=== PATIENT | male | born 1950 | race Native Hawaiian/Other Pacific Islander ===

== ENCOUNTER 2016-10-01 13:22 | Outpatient (CLI) | payer BC ==
[~2016-10-01 13:22] MED LIST: ALPR0.5T24 PO; ASA LOW DOSE81 MG PO; LISI10TA11 PO; METO50TA63 PO; SIMV20TA2 PO
== END 2016-10-02 02:02 | disposition home or self-care (01) ==
LOC: RAD 13:22
DX: M25.561 Pain in right knee (principal)

== ENCOUNTER 2018-11-20 11:33 | Outpatient (CLI) | payer BC, OTHER ==
[2018-11-20 12:00] LABS: PLATELET COUNT 207 K/uL (142-355)
[2018-11-20 12:06] LABS: POTASSIUM 4.1 mmol/L (3.6-5.2)
== END 2018-11-20 20:32 | disposition home or self-care (01) ==
LOC: LABW 11:33
PROVIDERS: Orthopaedic Surgery
DX: Z01.818 Encounter for other preprocedural examination (principal); I10 Essential (primary) hypertension; E78.00 Pure hypercholesterolemia, unspecified; M12.88 Other specific arthropathies, not elsewhere classified, other specified site
CPT/HCPCS: 36415; 80048; 81000; 82040; 84134; 85027; 87070; 93005

== ENCOUNTER 2019-08-18 09:44 | Outpatient (CLI) | payer OTHER, BC | END 2019-08-18 19:36 | disposition home or self-care (01) | LOC: RAD 09:44 | DX: M25.562 Pain in left knee (principal) ==

== ENCOUNTER 2019-09-25 13:30 | Outpatient (CLI) | payer OTHER, BC | END 2019-09-25 19:45 | disposition home or self-care (01) | LOC: RAD 13:30 | DX: M25.562 Pain in left knee (principal) ==

== ENCOUNTER 2020-02-15 08:50 | Outpatient (CLI) | payer OTHER, BC | END 2020-02-15 19:17 | disposition home or self-care (01) | LOC: RAD 08:50 | PROVIDERS: Orthopaedic Surgery | DX: M25.561 Pain in right knee (principal); E78.49 Other hyperlipidemia | CPT/HCPCS: 36415; 80061 ==

== ENCOUNTER 2020-03-21 12:19 | Outpatient (CLI) | payer OTHER, BC | END 2020-03-21 21:29 | disposition home or self-care (01) | LOC: RAD 12:19 | DX: M25.551 Pain in right hip (principal); M25.552 Pain in left hip ==

== ENCOUNTER 2020-07-19 11:08 | Outpatient (CLI) | payer OTHER, BC | END 2020-07-19 21:58 | disposition home or self-care (01) | LOC: RAD 11:08 | PROVIDERS: ATTEND Orthopaedic Surgery | DX: M25.561 Pain in right knee (principal); M25.562 Pain in left knee ==

== ENCOUNTER 2021-01-10 13:39 | Emergency (ER) | payer BC ==
[~2021-01-10] VITALS: Ht 177.8 cm; Wt 90.7 kg
[2021-01-10 13:40] VITALS: TEMP 98.2
[2021-01-10 14:16] LABS: PLATELET COUNT 220 K/uL (142-355)
[2021-01-10 14:27] LABS: POTASSIUM 4.3 mmol/L (3.6-5.2); SODIUM 139 mmol/L (136-145)
[2021-01-10 14:45] LABS: PARTIAL THROMBOPLASTIN TIME 24.9 SECONDS (24.5-33.6)
[2021-01-10 17:30] VITALS: BP 122/85
== END 2021-01-10 17:30 | disposition short-term general hospital (02) ==
LOC: ED 13:39
PROVIDERS: Hospitalist
DX: I63.89 Other cerebral infarction (principal); G83.21 Monoplegia of upper limb affecting right dominant side; I50.9 Heart failure, unspecified
CPT/HCPCS: 80053; 82550; 83880; 84484; 85027; 85610; 85730; 93005; 96360; 96365; 96376; 99285; J2405; J2997; J3490

== ENCOUNTER 2021-04-17 09:57 | Outpatient (CLI) | payer BC ==
[2021-04-17 10:19] LABS: PLATELET COUNT 184 K/uL (142-355)
[2021-04-17 10:41] LABS: POTASSIUM 3.8 mmol/L (3.6-5.2)
== END 2021-04-17 22:16 | disposition home or self-care (01) ==
LOC: LABW 09:57
PROVIDERS: ATTEND Internal Medicine
DX: I12.9 Hypertensive chronic kidney disease with stage 1 through stage 4 chronic kidney disease, or unspecified chronic kidney disease (principal); R53.83 Other fatigue; Z79.899 Other long term (current) drug therapy; N18.9 Chronic kidney disease, unspecified
CPT/HCPCS: 36415; 80053; 82043; 82306; 82607; 82728; 83036; 83540; 83550; 83735; 84100; 84439; 84443; 85027; 85652; 86038; 86431

== ENCOUNTER 2021-11-30 14:38 | Outpatient (CLI) | payer BC ==
[2021-11-30 15:08] LABS: PLATELET COUNT 187 K/uL (142-355)
== END 2021-11-30 22:10 | disposition home or self-care (01) ==
LOC: LABW 14:38
PROVIDERS: ATTEND Internal Medicine
DX: I12.9 Hypertensive chronic kidney disease with stage 1 through stage 4 chronic kidney disease, or unspecified chronic kidney disease (principal); N18.9 Chronic kidney disease, unspecified; Z79.899 Other long term (current) drug therapy
CPT/HCPCS: 36415; 80053; 82043; 82306; 82607; 82728; 83036; 83540; 83550; 83735; 84100; 84439; 84443; 85027; 85652; 86038; 86431

== ENCOUNTER 2022-10-13 11:34 | Emergency (ER) | payer BC ==
[~2022-10-13] VITALS: Ht 177.8 cm; Wt 86.2 kg
[2022-10-13 11:34] VITALS: TEMP 97.3
[2022-10-13 12:27] LABS: PLATELET COUNT 157 K/uL (142-355)
[2022-10-13 12:40] LABS: POTASSIUM 4.1 mmol/L (3.6-5.2)
[2022-10-13 12:43] LABS: PARTIAL THROMBOPLASTIN TIME 22.1 SECONDS (24.5-33.6)
[2022-10-13 14:50] VITALS: BP 147/97
== END 2022-10-13 14:50 | disposition short-term general hospital (02) ==
LOC: ED 11:34
PROVIDERS: Emergency Medicine
DX: S02.31XA Fracture of orbital floor, right side, initial encounter for closed fracture (principal); S02.40CA Maxillary fracture, right side, initial encounter for closed fracture; S02.19XA Other fracture of base of skull, initial encounter for closed fracture; S00.03XA Contusion of scalp, initial encounter; S00.01XA Abrasion of scalp, initial encounter; S13.4XXA Sprain of ligaments of cervical spine, initial encounter; M47.812 Spondylosis without myelopathy or radiculopathy, cervical region; R04.0 Epistaxis; K08.89 Other specified disorders of teeth and supporting structures; S01.512A Laceration without foreign body of oral cavity, initial encounter; I25.810 Atherosclerosis of coronary artery bypass graft(s) without angina pectoris; Z95.1 Presence of aortocoronary bypass graft; Z86.73 Personal history of transient ischemic attack (TIA), and cerebral infarction without residual deficits; Z79.82 Long term (current) use of aspirin; I10 Essential (primary) hypertension; Y04.2XXA Assault by strike against or bumped into by another person, initial encounter; Y92.481 Parking lot as the place of occurrence of the external cause
CPT/HCPCS: 36415; 80053; 83880; 84484; 85027; 85610; 85730; 90471; 90715; 93005; 96374; 96375; 96376; 99285; J2175; J2270; J2405

== ENCOUNTER → 2022-11-05 | Outpatient (CLI) | payer BC | LOC: RAD 09:18 | PROVIDERS: ATTEND Physician Assistant | DX: M54.59 Other low back pain (principal) ==

== ENCOUNTER 2023-01-19 17:42 | Observation (INO) | payer BC ==
[2023-01-19] VITALS (8 sets, daily range): BP systolic 69–113; BP diastolic 41–69; TEMP 97.5–98.4; Ht 177.8 cm; Wt 86.2 kg
[~2023-01-19] VITALS: Ht 177.8 cm; Wt 86.2 kg
[2023-01-19 17:52] LABS: PLATELET COUNT 207 K/uL (142-355)
[2023-01-19 18:00] LABS: PARTIAL THROMBOPLASTIN TIME 25.6 SECONDS (23.9-36.7)
[2023-01-19 18:02] LABS: POTASSIUM 3.9 mmol/L (3.6-5.2)
[2023-01-19] MEDS ORDERED: SERT50TA PO (21:30)
[2023-01-19] MEDS ORDERED: BENICAR20 MG PO (21:31)
[2023-01-19] MEDS ORDERED: VITAMIN D50000 UNIT PO (21:33)
[2023-01-19] MEDS ORDERED: TAMS0.4C PO (21:34)
[2023-01-19] MEDS ORDERED: PANTOPRAZOLE 40MG TA PO (21:34)
[2023-01-19] MEDS ORDERED: VITAMIN B-121000 MC1 SL (21:36)
[2023-01-19] MEDS ORDERED: NITR0.4S2 SL (21:36)
[2023-01-20] VITALS: BP 121/71; TEMP 98
[2023-01-20 04:00] VITALS: BP 127/78; TEMP 98.2
[2023-01-20 05:40] LABS: PLATELET COUNT 155 K/uL (142-355)
[2023-01-20 05:54] LABS: POTASSIUM 3.8 mmol/L (3.6-5.2)
[2023-01-20 08:00] VITALS: BP 148/74; TEMP 97.8
== END 2023-01-20 10:44 | disposition home or self-care (01) ==
LOC: ED 17:42 → MED/SURG 19:25
PROVIDERS: Family Medicine; ADMIT Nurse Practitioner Family; ATTEND Internal Medicine Endocrinology, Diabetes & Metabolism
DX: R55 Syncope and collapse (principal); I95.89 Other hypotension; N17.8 Other acute kidney failure; I25.10 Atherosclerotic heart disease of native coronary artery without angina pectoris; I10 Essential (primary) hypertension; F41.8 Other specified anxiety disorders; K21.9 Gastro-esophageal reflux disease without esophagitis; N40.0 Benign prostatic hyperplasia without lower urinary tract symptoms; Z79.899 Other long term (current) drug therapy
CPT/HCPCS: 36415; 80048; 80053; 80307; 80320; 81002; 82550; 82948; 84484; 85027; 85610; 85730; 93005; 96360; 96361; 96365; 96374; 99221; 99284; G0378; J1650; J3490

== ENCOUNTER 2023-03-28 08:58 | Outpatient (CLI) | payer BC ==
[~2023-03-28 08:58] MED LIST changes: +BENICAR20 MG PO; +NITR0.4S2 SL; +PANTOPRAZOLE 40MG TA PO; +SERT50TA PO; +TAMS0.4C PO; +VITAMIN B-121000 MC1 SL; +VITAMIN D50000 UNIT PO
== END 2023-03-28 19:55 | disposition home or self-care (01) ==
LOC: MRI 08:58
PROVIDERS: ATTEND Physician Assistant
DX: M48.062 Spinal stenosis, lumbar region with neurogenic claudication (principal)